=== PATIENT | female | born 1980 | race Hispanic/Latino ===

== ENCOUNTER 2025-01-17 20:26 | Emergency (ER) | payer SELFPAY ==
[~2025-01-17] VITALS: Ht 162.6 cm; Wt 45.4 kg
[~2025-01-17 20:26] MED LIST: FERROUS SULFAT325 MG PO; FLAGYL250 MG PO; PANTOPRAZOLE SO40 MG PO; PEPCID20 MG PO; POTASSIUM CHLO20 ME1 PO; ZOFRAN8 MG PO
[2025-01-17 20:37] VITALS: TEMP 99.2
[2025-01-17] MEDS: ONDANSETRON HCL INJ 2MG/ML 2ML 2 MG/ML VIAL IV STA (21:00)
[2025-01-17] MEDS: KETOROLAC TROMETHAMINE 30 MG/ML VIAL IV STA (21:00)
[2025-01-17] MEDS: SODIUM CHLORIDE 0.9% 1000ML 1,000 ML IV STA (21:00)
[2025-01-17 21:26] LABS: BASOPHILS % 0.3 % (0.0-1.0); EOSINOPHILS % 0.2 % (0.0-6.0); LYMPHOCYTES % 20.7 % (18.0-39.1); MONOCYTES % 3.7 % (4.4-11.3); NEUTROPHILS % 74.4 % (38.7-80.0); RED CELL DISTRIBUTION WIDTH 11.9 % (11.7-14.4)
[2025-01-17 21:31] LABS: LEUKOCYTE ESTERASE ,URINE NEGATIVE (NEGATIVE); PROTEIN,URINE DIPSTICK 2+ (NEGATIVE); URINE UROBILINOGEN 1 mg/dL (0.2 - 1)
[2025-01-17 21:32] LABS: PREGNANCY TEST, URINE NEGATIVE (NEGATIVE)
[2025-01-17 21:40] LABS: EST GLOMERULAR FILTRATION RATE 107.0 ML/MIN (>=60)
[2025-01-17 21:41] LABS: EPITHELIAL CELLS,URINE FEW /LPF; OTHER CRYSTALS,URINE PRESENT
[2025-01-17 22:00] VITALS: PULSE 73; RESP 18
[2025-01-17] MEDS ORDERED: LEVOFLOXACIN750 MG PO (23:11)
[2025-01-17] MEDS ORDERED: KETOROLAC TROME10 MG PO (23:11)
[2025-01-18] MEDS ORDERED: VENTOLIN HFA18 GM INH (00:06)
[2025-01-18] MEDS: ACETAMINOPHEN 325 MG TAB PO STA (00:17)
[2025-01-18 00:18] VITALS: BP 101/63; PULSE 72; RESP 17; TEMP 99; O2SAT 99
== END 2025-01-18 00:16 | disposition home or self-care (01) ==
LOC: ER 20:30
DX: R31.9 Hematuria, unspecified (principal); R10.9 Unspecified abdominal pain; R05.9 Cough, unspecified; R09.89 Other specified symptoms and signs involving the circulatory and respiratory systems; R53.81 Other malaise
CPT/HCPCS: 36415; 71046; 74176; 80053; 81001; 81025; 83690; 85025; 99284; J1885; J2405; J7030